=== PATIENT | female | born 1985 | race Caucasian/White ===

== ENCOUNTER 2018-08-23 18:44 | Emergency (ER) | payer MEDICAID ==
[~2018-08-23] VITALS: Ht 175.3 cm; Wt 136.1 kg
[2018-08-23 19:08] VITALS: Ht 175.3 cm; Wt 136.1 kg
[2018-08-23 19:46] LABS: BASOPHIL % 0.5 % (0-2); PLATELET COUNT 250 x10^3mcL (130-400)
[2018-08-23 19:51] LABS: RED CELL DISTRIBUTION WIDTH 15.4 % (11.5-14.5)
[2018-08-23 19:58] LABS: CALCIUM 8.9 mg/dL (8.5-10.1); CARBON DIOXIDE 25.7 mmol/L (21-32); CHLORIDE SERUM 102 mmol/L (98-107); CREATININE SERUM 0.8 mg/dL (0.6-1.0); GFR1 > 60 mL/min; GLUCOSE SERUM 89 mg/dL (74-106); POTASSIUM SERUM 4.1 mmol/L (3.5-5.1); SODIUM SERUM 134 mmol/L (136-145)
[2018-08-23 20:07] LABS: ALBUMIN 3.5 g/dL (3.4-5.0); ALKALINE PHOSPHATASE 207 U/L (46-116); BILIRUBIN TOTAL 3.8 mg/dL (0.20-1.00)
[2018-08-23 20:09] LABS: TOTAL PROTEIN, SERUM 8.5 g/dL (6.4-8.2)
[2018-08-23 20:10] LABS: ALT/SGPT 1725 U/L (14-59)
[2018-08-23 21:05] LABS: AST/SGOT 2548 U/L (15-37)
[2018-08-23 23:00] VITALS: BP 142/89
== END 2018-08-23 23:00 | disposition home or self-care (01) ==
LOC: ED 18:44
PROVIDERS: Emergency Medicine
DX: R10.30 Lower abdominal pain, unspecified (principal); R11.10 Vomiting, unspecified; R19.7 Diarrhea, unspecified; R42 Dizziness and giddiness; R51 Headache; I10 Essential (primary) hypertension; Z88.2 Allergy status to sulfonamides; Z90.49 Acquired absence of other specified parts of digestive tract
CPT/HCPCS: J1885; J2405; J7030

== ENCOUNTER 2019-07-07 11:28 | Emergency (ER) | payer OTHER ==
[~2019-07-07] VITALS: Ht 172.7 cm; Wt 141.1 kg
[2019-07-07 11:36] VITALS: Ht 172.7 cm; Wt 141.1 kg
[2019-07-07 12:39] LABS: BASOPHIL % 1.3 % (0-2); PLATELET COUNT 269 x10^3mcL (130-400); RED CELL DISTRIBUTION WIDTH 14.4 % (11.5-14.5)
[2019-07-07 13:36] VITALS: BP 159/114
[2019-07-07 13:54] LABS: CARBON DIOXIDE 24 mmol/L (21-32); CHLORIDE SERUM 100 mmol/L (98-107); CREATININE SERUM 0.9 mg/dL (0.6-1.0); GLUCOSE SERUM 122 mg/dL (74-106); POTASSIUM SERUM 3.5 mmol/L (3.5-5.1); SODIUM SERUM 136 mmol/L (136-145)
[2019-07-07 13:55] LABS: ALBUMIN 3.7 g/dL (3.4-5.0); CALCIUM 9.5 mg/dL (8.5-10.1); TOTAL PROTEIN, SERUM 9.1 g/dL (6.4-8.2)
[2019-07-07 13:56] LABS: ALKALINE PHOSPHATASE 114 U/L (46-116); ALT/SGPT 50 U/L (14-59); AMYLASE 55 U/L (25-115); AST/SGOT 60 U/L (15-37); BILIRUBIN TOTAL 1.1 mg/dL (0.20-1.00); LIPASE 329 IU/L (73-393)
== END 2019-07-07 13:36 | disposition home or self-care (01) ==
LOC: ED 11:28
PROVIDERS: Emergency Medicine
DX: K52.9 Noninfective gastroenteritis and colitis, unspecified (principal); E86.0 Dehydration; I10 Essential (primary) hypertension; Z98.51 Tubal ligation status; Z90.49 Acquired absence of other specified parts of digestive tract; Z88.2 Allergy status to sulfonamides
CPT/HCPCS: J2405; J7030

== ENCOUNTER 2020-06-15 10:59 | Inpatient (IN) | payer OTHER ==
[~2020-06-15] VITALS: Ht 172.7 cm; Wt 124.7 kg
[2020-06-15 13:14] LABS: BASOPHIL % 0.4 % (0.2-1.3); PLATELET COUNT 268 x10^3mcL (179-408)
[2020-06-15 13:22] LABS: CALCIUM 8.8 mg/dL (8.5-10.1); CHLORIDE SERUM 104 mmol/L (98-107); GFR1 > 60 mL/min; GLUCOSE SERUM 164 mg/dL (74-106); POTASSIUM SERUM 3.5 mmol/L (3.5-5.1); SODIUM SERUM 140 mmol/L (136-145)
[2020-06-15 13:26] LABS: ALBUMIN 3.6 g/dL (3.4-5.0); ALKALINE PHOSPHATASE 138 U/L (46-116); ALT/SGPT 62 U/L (14-59); AST/SGOT 60 U/L (15-37); BILIRUBIN TOTAL 0.47 mg/dL (0.20-1.00)
[2020-06-15 13:28] LABS: TOTAL PROTEIN, SERUM 8.3 g/dL (6.4-8.2)
[2020-06-15 13:45] LABS: RED CELL DISTRIBUTION WIDTH 14.9 % (12.3-17.7)
[2020-06-15 14:14] LABS: UA SPECIFIC GRAVITY 1.025 (1.005-1.035); microscopic required? YES; urine erythrocyte 2+ (NEGATIVE)
[2020-06-15 16:46] LABS: MAGNESIUM 1.9 mg/dL (1.8-2.4); PHOSPHOROUS 3.3 mg/dL (2.5-4.9)
[2020-06-16 11:07] VITALS: BP 159/109
[2020-06-16 11:24] VITALS: BP 159/109
[2020-06-16 12:40] VITALS: BP 149/108
[2020-06-16 16:56] VITALS: BP 154/109
[2020-06-16 20:32] VITALS: BP 184/96
[2020-06-17 04:57] VITALS: BP 143/90
[2020-06-17 07:33] LABS: BASOPHIL % 0.4 % (0.2-1.3); PLATELET COUNT 250 x10^3mcL (179-408)
[2020-06-17 07:42] LABS: RED CELL DISTRIBUTION WIDTH 14.6 % (12.3-17.7)
[2020-06-17 07:56] LABS: CALCIUM 8.9 mg/dL (8.5-10.1); CHLORIDE SERUM 104 mmol/L (98-107); CREATININE SERUM 0.9 mg/dL (0.6-1.0); GFR1 > 60 mL/min; GLUCOSE SERUM 106 mg/dL (74-106); PHOSPHOROUS 3.6 mg/dL (2.5-4.9); POTASSIUM SERUM 3.4 mmol/L (3.5-5.1); SODIUM SERUM 141 mmol/L (136-145)
[2020-06-17 12:28] VITALS: BP 138/78
[2020-06-17 17:12] VITALS: BP 164/108
[2020-06-17] MEDS ORDERED: ZESTRIL5 MG PO (17:27)
== END 2020-06-17 20:22 | disposition home or self-care (01) | DRG 446 ==
LOC: ED 10:59 → MU 15:20
PROVIDERS: Emergency Medicine; Family Medicine; Urology; ADMIT Internal Medicine; ATTEND Internal Medicine
PROC: 0T768DZ Dilation of Right Ureter with Intraluminal Device, Via Natural or Artificial Opening Endoscopic (ICD-10-PCS; 2020-06-17)
PROC: BT1D1ZZ Fluoroscopy of Right Kidney, Ureter and Bladder using Low Osmolar Contrast (ICD-10-PCS; 2020-06-17)
PROC: 0TC68ZZ Extirpation of Matter from Right Ureter, Via Natural or Artificial Opening Endoscopic (ICD-10-PCS; principal; 2020-06-17 07:30)
DX: N13.2 Hydronephrosis with renal and ureteral calculous obstruction (principal); E66.01 Morbid (severe) obesity due to excess calories; I10 Essential (primary) hypertension; Z71.3 Dietary counseling and surveillance; Z88.2 Allergy status to sulfonamides; Z98.51 Tubal ligation status; Z90.49 Acquired absence of other specified parts of digestive tract; Z20.822 Contact with and (suspected) exposure to COVID-19
CPT/HCPCS: 51610; C1758; C2625; G0378; J0696; J1885; J2270; J2405; J3010; J7030; Q9967